=== PATIENT | male | born 1980 | race Caucasian/White ===

== ENCOUNTER → 2017-11-17 07:56 | Outpatient (CLI) | payer MEDICAID, SELFPAY | PROVIDERS: Family Provider Internal Medicine Adolescent Medicine; PCP Internal Medicine Adolescent Medicine; Visit Provider Internal Medicine Adolescent Medicine | DX: R07.9 Chest pain, unspecified (principal) | CPT/HCPCS: 93017 ==

== ENCOUNTER 2021-03-10 11:24 | Emergency (ER) | payer OTHER, SELFPAY ==
[2021-03-10 11:26] VITALS: BP 146/96; PULSE 75; RESP 18; TEMP 36.7; O2SAT 95; BMI 40.4
[2021-03-10 11:41] VITALS: BMI 40.4
--- NOTE | 2021-03-10 11:42 | XR_ITS ---
PROCEDURE: XR FINGER RT MIN 2V CLINICAL INDICATION: laceration to finger tip COMPARISON: No exams were available for comparison FINDINGS: Comminuted fracture involves the tuft of the distal phalanx the 4th finger. Main fracture fragment is lateral and measures 4 mm displaced slightly laterally by 2 mm. Soft tissue defect also noted distally The joint spaces are well-preserved. No significant degenerative/arthritic changes. No erosive changes evident. Other findings:None. IMPRESSION: Comminuted open fracture tuft of the distal phalanx of the 4th digit Dictated by: Camron Smith MD 03/10/2021 12:05 Camron Smith MD in [facility] 03/10/2021 12:05
--- NOTE | 2021-03-10 11:42 | PC.NURSE ---
finger soaking in hibiclens and saline will continue to monitor
--- NOTE | 2021-03-10 12:10 | [facility].EDGENADL ---
ED Disposition Clinical Impression: Finger laceration Qualifiers: Encounter type: initial encounter Finger: ring finger Damage to nail status: without damage Foreign body presence: without foreign body Laterality: left Qualified Code(s): S61.215A - Laceration without foreign body of left ring finger without damage to nail, initial encounter Fracture of phalanx of digit of hand Qualifiers: Encounter type: initial encounter Fracture type: open Qualified Code(s): S62.609B - Fracture of unspecified phalanx of unspecified finger, initial encounter for open fracture Disposition: Home, Self-Care Condition on Discharge: Good Instructions: DI for Laceration Repair Additional Instructions: Take Keflex as prescribed. Cressona as needed for pain. Change bandage and clean wound daily. Apply protective splint. Follow-up with orthopedics, Dr. Cervantes, within 1 week. Call for appointment. Additional instructions for CONTROLLED SUBSTANCES: You have been prescribed a medication that is a controlled substance. Controlled substances include pain medications known as opiates and sedative nerve medications known as benzodiazepines. Tramadol, fioricet, and gabapentin are also controlled substances. Some common opiates include: Codeine (such as Tylenol #3) Hydrocodone (Vicodin, Lortab, Lorcet, Cressona) Oxycodone (Percocet, Percodan, Oxycodone, Oxy IR) Some common benzodiazepines include: Diazepam (Valium) Lorazepam (Ativan) Alprazolam (Xanax) Clonazepam (Klonopin) Oxazepam (Serax) All of these controlled substances are highly addictive and frequently abused. Misuse can and frequently does lead to addiction as well as overdose and . Medication should be stored in a locked cabinet or other secure storage unit. Do not store the medication in a motor vehicle. Short term supplies, 3 days or less, are prescribed because of the highly addictive nature of the medication. Any of the controlled substance medication NOT taken should be disposed of properly and NOT SAVED. The recommended method of disposing of unused medications is: Place the medicines in a sealable plastic bag. If the medicine is a solid, crush it or add water to dissolve it. Add something undesirable (cat litter, coffee grounds, etc.) Dispose of sealed bag in household trash Do not flush or pour unused medicines down a sink or drain. Controlled substances should not be shared, given away or sold. Because of the addictive nature and frequent abuse, these medications are sometimes stolen. These medications should be kept in a safe place where they cannot be stolen. Do not keep them in your car or purse. Lost or stolen prescriptions for controlled substances WILL NOT BE REFILLED in this emergency department, regardless of whether a police report was filed. Prescriptions: Hydrocod/Acet 5/325 mg [Cressona 5/325mg tablet] 1 tab PO Q6HP PRN #10 tab PRN Reason: Pain Transmission Status: Sent to [facility] cephALEXin [cephALEXin 500mg capsule*] 500 mg PO Q6H #28 cap Transmission Status: Pending to [facility] Referrals: Roman Wing MD [Primary Care Provider] - Jesse Cervantes MD [Staff Physician] - - Critical Care Critical Care Time: No Attestation: On 03/10/21, the high probability of a clinically significant, sudden or life threatening deterioration of the following system(s) required my full and direct attention, intervention and personal management. The time I documented below is in addition to time spent performing reported procedures but includes the following listed in this critical care notation. Medical Decision Making - José Luis Inquiry Pt receiving controlled substance: Yes José Luis was queried for this patient: Yes Risks and benefits of using a controlled substance: were discussed with pt by me Vital Signs: 03/10/21 11:26 Temperature 98.0 F Temperature Source Oral Pulse Rate [Right Radial] 75 Respiratory Rate 18 Bl
--- NOTE | 2021-03-10 12:37 | PC.NURSE ---
GABO HELTON at
[2021-03-10 13:13] VITALS: BP 134/77; PULSE 78; RESP 18; TEMP 36.7; O2SAT 95
== END 2021-03-10 13:13 | disposition home or self-care (01) ==
PROVIDERS: Emergency Provider Emergency Medicine; PCP Internal Medicine Adolescent Medicine
DX: S61.215A Laceration without foreign body of left ring finger without damage to nail, initial encounter (principal); S62.635B Displaced fracture of distal phalanx of left ring finger, initial encounter for open fracture; Z23 Encounter for immunization; W31.2XXA Contact with powered woodworking and forming machines, initial encounter
CPT/HCPCS: 12002; 73140; 90471; 90715; 99282

== ENCOUNTER 2022-06-04 19:08 | Emergency (ER) | payer OTHER, SELFPAY ==
[2022-06-04 19:18] VITALS: BP 130/90; PULSE 84; RESP 19; TEMP 37.2; O2SAT 96; BMI 41.5
--- NOTE | 2022-06-04 19:22 | ECG_ITS ---
APPROVED REPORT Exam: Resting ECG HR:82 bpm ECG Measurements Heart Rate 82 AXES SD 159 P 64 QRSd 109 QRS 35 QT 356 T 0 QTc 395 Conclusion SINUS RHYTHM Isolated Q in III BORDERLINE ECG UNCONFIRMED REPORT Electronically signed by : Roman Wing MD 06/04/2022 21:08:38
[2022-06-04 19:30] VITALS: BP 139/94; PULSE 84; RESP 28; O2SAT 95
[2022-06-04 19:52] VITALS: PULSE 84
--- NOTE | 2022-06-04 19:54 | XR_ITS ---
PROCEDURE INFORMATION: Exam: XR Chest Exam date and time: 06/04/2022 7:58 PM Age: 41 years old Clinical indication: Cough and dyspnea and fever and shortness of breath; Patient HX: Cp @ sternum, SOA, tightness, coughing, fever, body aches x 4 days. Nonsmoker. ; Additional info: Chest pain TECHNIQUE: Imaging protocol: Radiologic exam of the chest. Views: 2 views. COMPARISON: CR XR CHEST 2V 05/03/2019 7:37 PM FINDINGS: Lungs: Unremarkable. No consolidation. Pleural spaces: Unremarkable. No pleural effusion. No pneumothorax. Heart/Mediastinum: Unremarkable. No cardiomegaly. Bones/joints: Unremarkable. IMPRESSION: No acute findings.
[2022-06-04 20:00] VITALS: BP 133/87; RESP 25; O2SAT 95
[2022-06-04 20:07] LABS: Chloride 106 mmol/L (98-107); Potassium 4.2 mmoL/L (3.5-5.1); Sodium 140 mmol/L (136-145)
[2022-06-04 20:08] LABS: Basophils # 0.1 K/mm3 (0-0.2); Basophils % 1.7 % (0.1-2.0); Eosinophils # 0.1 K/mm3 (0.0-0.4); Eosinophils % 2.5 % (0.1-12.0); Hematocrit 44.9 % (42.0-52.0); Hemoglobin 15.2 g/dL (14.1-18.0); Lymphocytes # 1.4 K/mm3 (0.7-4.5); Lymphocytes % 33.5 % (10-50); Mean Corpuscular HGB Conc 33.8 g/dL (31.8-35.4); Mean Corpuscular Hemoglobin 29.7 pg (27.0-31.2); Mean Corpuscular Volume 87.9 fl (80-94); Mean Platelet Volume 9.2 fl (7.4-10.4); Monocytes # 0.4 K/mm3 (0.1-1.0); Monocytes % 9.4 % (1.7-9.3); Neutrophils # 2.3 K/mm3 (1.8-7.8); Neutrophils % 52.9 % (37.0-80.0); Platelet Count 276 K/mm3 (142-424); Red Blood Count 5.11 M/mm3 (4.60-6.20); Red Cell Distribution Width 13.3 % (11.5-17.5); White Blood Count 4.3 K/mm3 (4.8-10.8)
[2022-06-04 20:10] LABS: Anion Gap 9.2 mEq/L (5-15); Blood Urea Nitrogen 17 mg/dl (9-20); Calcium 7.5 mg/dl (8.4-10.2); Carbon Dioxide 29 mmol/L (22.0-30.0); Creatinine Clearance Estimated 99 mL/min (50-200); Estimated Glomerular Filt Rate 82 ml/min (>60); GFR (African American) 99 ML/MIN (>60); Glucose 101 mg/dl (74-100)
[2022-06-04 20:25] LABS: Troponin I < 0.01 ng/ml (0.00-0.034)
[2022-06-04 20:30] VITALS: BP 120/85; PULSE 65; RESP 21; O2SAT 92
--- NOTE | 2022-06-04 20:49 | CT_ITS ---
PROCEDURE INFORMATION: Exam: CTA Chest With Contrast Exam date and time: 06/04/2022 9:22 PM Age: 41 years old Clinical indication: Shortness of breath; Additional info: Cp/sob TECHNIQUE: Imaging protocol: Computed tomographic angiography of the chest with contrast. 3D rendering (Not supervised by radiologist): MIP and/or 3D reconstructed images were created by the technologist. Radiation optimization: All CT scans at this facility use at least one of these dose optimization techniques: automated exposure control; mA and/or kV adjustment per patient size (includes targeted exams where dose is matched to clinical indication); or iterative reconstruction. Contrast material: ISOVUE; Contrast volume: 70 ml; Contrast route: INTRAVENOUS (IV); REPORTING DATA: Count of CT and Cardiac NM exams in prior 12 months: This patient has received 0 known CTs and 0 known cardiac nuclear medicine studies in the 12 months prior to the current study. COMPARISON: [facility] CTA-CHEST 07/22/2015 2:14 PM FINDINGS: Pulmonary arteries: There is suboptimal opacification of pulmonary arteries due to contrast bolus timing. Aorta: Unremarkable. No aortic aneurysm. No aortic dissection. Lungs: Unremarkable. No consolidation. No masses. Pleural spaces: Unremarkable. No pneumothorax. No pleural effusion. Heart: Unremarkable. No cardiomegaly. No pericardial effusion. Coronary arteries: No evidence of coronary artery calcification. Lymph nodes: Calcified hilar and mediastinal lymph nodes again demonstrated. Liver: Hepatic steatosis. Bones/joints: Unremarkable. No acute fracture. Soft tissues: Unremarkable. IMPRESSION: No large or central pulmonary embolus. Evaluation of the peripheral pulmonary arteries is limited.
[2022-06-04 20:59] LABS: Alanine Aminotransferase 36 U/L (12-78); Alkaline Phosphatase 63 U/L (38-126); Aspartate Amino Transferase 62 U/L (17-59); Bilirubin,Direct 0.4 mg/dl (0.0-0.4); Bilirubin,Indirect 0.1 mg/dL (0.0-0.9); Bilirubin,Total 0.5 mg/dl (0.2-1.3); Bilirubin,Unconjugated 0.1 mg/dL (0.0-1.1); Total Protein,Serum 6.8 g/dl (6.3-8.2)
[2022-06-04 21:05] LABS: D-Dimer 0.86 ug/mL (0.0-0.5)
[2022-06-04 22:00] LABS: Influenza A, PCR Not Detected (NotDetected); Influenza B, PCR Not Detected (NotDetected)
[2022-06-04 22:34] LABS: Coronavirus 19, PCR Detected (NotDetected)
--- NOTE | 2022-06-04 23:07 | PC.NURSE ---
obtained 2nd troponin, pt resting comfortably.
--- NOTE | 2022-06-04 23:33 | [facility]H.EDCP ---
Discharge Plan Disposition Patient Disposition: Home, Self-Care Condition: Good Prescriptions Prescriptions: New Paxlovid (EUA) 300 mg (150 mg x 2)-100 mg tablets,dose pack See Rx Instructions .ROUTE .COMPLEX Qty: 30 0RF Rx Instructions: take TWO 150 mg tablets of nirmatrelvir with ONE 100 mg tablet of ritonavir twice daily for 5 days Referrals Follow up/Referrals: Roman Wing MD [Primary Care Provider] - See instructions Clinical Impressions Clinical Impression: Atypical chest pain, COVID-19 Instructions Patient Instructions: DI for Atypical Chest Pain Discharge ED Provider: Stephanie Carl Chest Pain HPI General Chief Complaint: Chest Pain Stated Complaint: chest congestion, cough, fever Time Seen by Provider: 06/04/22 20:16 Mode of Arrival: Family Vehicle Source of Information: Patient Limitations: No Limitations Description of Symptoms (Recalled from ER Triage Doc. by RN): Pt c/o midsternal chest pain, SOA, body aches, and cough. States he began to feel unwell starting on Tuesday of this week, stating I think I had the flu . His symtoms began to progress with chest congestion and mid-sternal pain w/ SOA all the time and I think I have pneumonia . History of Present Illness HPI narrative: Patient is a 41-year-old male who is here secondary to chest pain. Patient's complaint substernal chest pain sharp in nature. Patient stated it hurts when he takes a deep breath or moves. Patient's been sick for 3 days with cough and congestion. Nonproductive phlegm. No fevers or chills. He said no sore throat headache no loss of taste or smell. He said he is short of breath with the chest pain. But when asked in detail he said it hurts when he takes a deep breath. The chest pain is mostly on taking a deep breath and coughing and movement. He is not vaccinated for the flu COVID or pneumonia. Patient stated that he has no hypertension hyperlipidemia and diabetes. He chews tobacco and occasional alcohol no drugs. He has not seen a doctor for liver so he does not know if he has coronary disease. complaint: chest pain Onset (ago): hour(s) Duration: constant Activity at onset: during rest Pain location: substernal Severity: mild Severity scale (1-10): 4 Quality: aching and sharp Pain radiation: none Relieving factors: nothing Exacerbating factors: nothing Context: recent illness (Cough congestion shortness of breath.) Associated symptoms: dyspnea and cough Treatments prior to or on arrival for Cardiac Chest Pain: none Related Data Previous Rx's Medication Instructions Recorded nirmatrelvir 300 mg (150 mg See Rx Instructions PO .COMPLEX 06/04/22 x2)-ritonavir 100 mg tablet,dose #30 tabs pack(EUA) (Paxlovid) Allergies Allergy/AdvReac Type Severity Reaction Status Date / Time No Known Allergies Allergy Unverified 08/05/21 09:20 [facility] Disclaimer: The information contained in this section may have been updated after the patient was seen, as this information can be updated by other users. Social History Smoking Status: Never smoker alcohol intake: never current occupational status: employed Travel in the last 8 weeks: None ROS Obtained: Yes All systems reviewed & no additional complaints except as documented Cardiovascular Cardiovascular: Reports chest pain and Reports dyspnea Respiratory Respiratory: Reports cough and Reports dyspnea Physical Exam General General appearance: alert and in distress Head Head exam: atraumatic, normocephalic and normal inspection Eye Eye exam: Present normal appearance, PERRL and EOMI; Absent scleral icterus or conjunctival redness ENT ENT exam: Present normal exam, normal oropharynx and mucous membranes moist Neck Neck exam: Present normal inspection, full ROM and trachea midline Chest Chest inspection: Present normal inspection, symmetric chest wall rise and tenderness Res
[2022-06-04 23:34] LABS: Troponin I < 0.01 ng/ml (0.00-0.034)
[2022-06-04 23:37] VITALS: BP 125/80; PULSE 62; RESP 18; TEMP 36.6; O2SAT 99
--- NOTE | 2022-06-04 23:48 | PC.NURSE ---
at bedside s/w pt and his regarding POC and d/c
== END 2022-06-04 23:56 | disposition home or self-care (01) ==
PROVIDERS: Ophthalmology; Student in an Organized Health Care Education/Training Program; Emergency Provider Emergency Medicine; PCP Internal Medicine Adolescent Medicine
DX: U07.1 COVID-19 (principal); R07.89 Other chest pain
CPT/HCPCS: 71046; 71275; 80048; 80076; 84484; 85025; 85378; 93005; 99285; C9803; Q9967; U0003; U0005